=== PATIENT | female | born 1990 | race Caucasian/White ===

== ENCOUNTER 2018-01-12 18:33 | Emergency (ER) | payer OTHER ==
[~2018-01-12] VITALS: Ht 167.6 cm; Wt 96.8 kg
[~2018-01-12 18:33] MED LIST: MICRONOR0.35 MG PO; Motrin PO
[2018-01-12] MEDS ORDERED: FLEXERIL10 MG PO (21:53)
[2018-01-12 22:07] VITALS: BP 126/86
== END 2018-01-12 22:07 | disposition home or self-care (01) ==
LOC: EME 18:33
DX: O26.892 Other specified pregnancy related conditions, second trimester (principal); S76.012A Strain of muscle, fascia and tendon of left hip, initial encounter; Y93.01 Activity, walking, marching and hiking; Z3A.26 26 weeks gestation of pregnancy; M54.32 Sciatica, left side
CPT/HCPCS: 99281; 99283

== ENCOUNTER 2018-02-09 18:37 | Outpatient (CLI) | payer OTHER ==
[~2018-02-09] VITALS: Ht 167.6 cm; Wt 98.9 kg
[~2018-02-09 18:37] MED LIST changes: +FLEXERIL10 MG PO
[2018-02-09 19:24] VITALS: BP 102/54
== END 2018-02-09 20:40 | disposition home or self-care (01) ==
LOC: LDRP-OP 18:37 → 2WEST 18:38 → LDRP-OP 05-19 17:43
DX: O36.8130 Decreased fetal movements, third trimester, not applicable or unspecified (principal); O99.343 Other mental disorders complicating pregnancy, third trimester; F90.9 Attention-deficit hyperactivity disorder, unspecified type; Z86.19 Personal history of other infectious and parasitic diseases
CPT/HCPCS: 59025; G0378

== ENCOUNTER 2018-03-13 18:54 | Outpatient (CLI) | payer BC, OTHER ==
[2018-03-13 19:11] VITALS: BP 96/50
[2018-03-13 19:58] VITALS: BP 106/55
[2018-03-13 21:33] LABS: CANDIDA DNA PROBE NEGATIVE; GARDNERELLA DNA PROBE NEGATIVE; TRICHOMONAS DNA PROBE NEGATIVE
== END 2018-03-13 20:16 | disposition home or self-care (01) ==
LOC: LDRP-OP 18:54 → 2WEST 18:55 → LDRP-OP 05-19 21:03
PROVIDERS: Advanced Practice Midwife
DX: O26.893 Other specified pregnancy related conditions, third trimester (principal); O99.213 Obesity complicating pregnancy, third trimester; E66.9 Obesity, unspecified; Z3A.34 34 weeks gestation of pregnancy
CPT/HCPCS: 59025; 87480; 87510; 87660; G0378

== ENCOUNTER 2018-03-18 11:26 | Outpatient (CLI) | payer OTHER ==
[2018-03-18 11:37] VITALS: BP 112/58
[2018-03-18 13:35] VITALS: BP 118/56
== END 2018-03-18 15:23 | disposition home or self-care (01) ==
LOC: LDRP-OP 11:26 → 2WEST 11:27 → LDRP-OP 05-19 20:46
DX: Z04.3 Encounter for examination and observation following other accident (principal); W10.9XXA Fall (on) (from) unspecified stairs and steps, initial encounter; O26.893 Other specified pregnancy related conditions, third trimester; Z3A.35 35 weeks gestation of pregnancy
CPT/HCPCS: 59025; 76805; G0378

== ENCOUNTER 2018-04-26 08:03 | Inpatient (IN) | payer BC, OTHER ==
[~2018-04-26] VITALS: Ht 167.6 cm; Wt 102.5 kg
[2018-04-26] VITALS (11 sets, daily range): BP systolic 107–138; BP diastolic 56–80
[2018-04-26 09:49] LABS: BASOPHIL (%) 0.3 % (0-1); EOSINOPHIL (%) 0.6 % (0-5); EOSINOPHIL COUNT 0.1 K/uL (0-0.3); HEMATOCRIT 37.9 % (36.0-46.0); HEMOGLOBIN 13.1 G/DL (11.9-15.5); IMMATURE GRANULOCYTE (%) 0.4 % (0.0-0.7); LYMPHOCYTE (%) 16.5 % (15-42); LYMPHOCYTE COUNT 1.9 K/uL (1.0-2.8); MCHC 34.6 G/DL (30.0-36.0); MCV 92.4 FL (83-99); MONOCYTE (%) 4.9 % (3-12); MONOCYTE COUNT 0.6 K/uL (0-0.8); NEUTROPHIL (%) 77.3 % (45-76); NEUTROPHIL COUNT 8.8 K/uL (1.8-6.4); PLATELET COUNT 188 K/uL (156-360); RBC DIS.WIDTH-CV 13.2 % (11.8-14.6); WHITE BLOOD COUNT 11.4 K/uL (4.1-10.2)
[2018-04-26 11:13] LABS: AMPHETAMINE NEGATIVE (500 ng/mL); BARBITURATES NEGATIVE (200 ng/mL); BENZODIAZEPINES NEGATIVE (150 ng/mL); BUPRENORPHINE NEGATIVE (10 ng/mL); COCAINE NEGATIVE (150 ng/mL); METHADONE NEGATIVE (200 ng/mL); METHAMPHETAMINE NEGATIVE (500 ng/mL); OPIATES (MORPHINE) NEGATIVE (100 ng/mL); OXYCODONE NEGATIVE (100 ng/mL); PHENCYCLIDINE NEGATIVE (25 ng/mL); PROPOXYPHENE NEGATIVE (300 ng/mL); THC CANNABINOIDS NEGATIVE (50 ng/mL); TRICYCLIC ANTIDEPRESSANTS NEGATIVE (300 ng/mL)
[2018-04-27 06:50] LABS: BASOPHIL (%) 0.3 % (0-1); BASOPHIL COUNT 0.1 K/uL (0-0.1); EOSINOPHIL (%) 0.4 % (0-5); EOSINOPHIL COUNT 0.1 K/uL (0-0.3); HEMATOCRIT 34.2 % (36.0-46.0); HEMOGLOBIN 11.7 G/DL (11.9-15.5); IMMATURE GRANULOCYTE (%) 0.6 % (0.0-0.7); LYMPHOCYTE (%) 20.1 % (15-42); LYMPHOCYTE COUNT 3.1 K/uL (1.0-2.8); MCH 32.1 PG (29.0-34.0); MCHC 34.2 G/DL (30.0-36.0); MCV 93.7 FL (83-99); MONOCYTE (%) 8.6 % (3-12); MONOCYTE COUNT 1.3 K/uL (0-0.8); NEUTROPHIL COUNT 10.7 K/uL (1.8-6.4); PLATELET COUNT 194 K/uL (156-360); RBC DIS.WIDTH-CV 13.5 % (11.8-14.6); RBC DIS.WIDTH-SD 46.1 % (39-53); RED BLOOD COUNT 3.65 M/uL (3.80-5.20); WHITE BLOOD COUNT 15.3 K/uL (4.1-10.2)
[2018-04-27 07:25] VITALS: BP 105/55
[2018-04-27 15:19] VITALS: BP 105/67
[2018-04-27 23:00] VITALS: BP 113/76
== END 2018-04-28 16:20 | disposition home or self-care (01) | DRG 775 ==
LOC: LDRP-OP → 2WEST 08:04 → LDRP-OP 05-19 16:18
PROVIDERS: Advanced Practice Midwife
PROC: 3E0P7GC Introduction of Other Therapeutic Substance into Female Reproductive, Via Natural or Artificial Opening (ICD-10-PCS; principal; 2018-04-26)
PROC: 10907ZC Drainage of Amniotic Fluid, Therapeutic from Products of Conception, Via Natural or Artificial Opening (ICD-10-PCS; 2018-04-26)
PROC: 10E0XZZ Delivery of Products of Conception, External Approach (ICD-10-PCS; 2018-04-26)
DX: O48.0 Post-term pregnancy (principal); O76 Abnormality in fetal heart rate and rhythm complicating labor and delivery; O77.0 Labor and delivery complicated by meconium in amniotic fluid; O69.81X0 Labor and delivery complicated by cord around neck, without compression, not applicable or unspecified; O99.214 Obesity complicating childbirth; E66.9 Obesity, unspecified; Z68.31 Body mass index [BMI] 31.0-31.9, adult; Z3A.41 41 weeks gestation of pregnancy; Z37.0 Single live birth
CPT/HCPCS: 59025; 85025; J7120